=== PATIENT | male | born 1970 | race Caucasian/White ===

== ENCOUNTER 2020-07-03 15:25 | Emergency (ER) | payer OTHER ==
[2020-07-03] MEDS ORDERED: Acetaminophen 500 MG TAB ONE (17:08)
[2020-07-03 17:33] LABS: Hemoglobin 16.8 g/dL (14.0-18.0); Mean Corpuscular HGB CONC 33.6 g/dL (32.0-36.0); Mean Corpuscular Hemoglobin 30.6 pg (27.0-31.0); Mean Corpuscular Volume 90.9 fL (78.0-98.0); Mean Platelet Volume 7.2 fL (7.4-10.4); Platelet Count 149 thou/uL (130-400); RBC Distribution Width 11.8 % (11.5-14.5); Red Blood Cell (RBC) Count 5.49 mill/uL (4.70-6.10)
[2020-07-03 17:55] LABS: ALT (SGPT) 42 U/L (8-55); AST (SGOT) 33 U/L (5-34); Albumin 4.3 g/dL (3.5-5.0); Alkaline Phosphatase 54 U/L (40-110); Anion Gap 14 mmol/L (10-20); BUN (Urea Nitrogen) 12 mg/dL (8.4-25.7); Bilirubin, Total 0.5 mg/dL (0.2-1.2); Calc. Creatinine Clearance 0 mL/min (70-130); Calcium 9.1 mg/dL (7.8-10.44); Carbon Dioxide 26 mmol/L (22-29); Chloride 101 mmol/L (98-107); Estimated GFR-MDRD 75; Globulin 3.1 g/dL (2.4-3.5); Glucose 93 mg/dL (70-105); Protein, Total 7.4 g/dL (6.0-8.3); Sodium 137 mmol/L (136-145)
--- NOTE | 2020-07-03 17:55 | RAD ---
CHEST ONE VIEW: 07/03/20 HISTORY: COVID positive testing with lightheadedness. COMPARISON: Prior chest radiograph dated 11/05/08. FINDINGS: No air space opacity is evident. Heart size is normal. No pleural effusion or pneumothorax is evident . No acute osseous abnormality is evident. IMPRESSION: No acute abnormality. POS: [facility]
[2020-07-03 18:08] LABS: Band 20 % (5-11); Eosinophils 3 % (0-10); Lymphocytes 14 % (21-51); MDiff Complete? YES; Monocytes 22 % (0-10); Neutrophil 24 % (42-75); Platelet Morphology Comment Appears Adequate; RBC Morphology Normal; Reactive Lymphocytes 17 % (0-10)
[2020-07-03] MEDS ORDERED: Aspirin Chewable 81 MG TAB ONE (19:38)
== END 2020-07-03 19:46 | disposition home or self-care (01) ==
LOC: ERS 15:25
DX: U07.1 COVID-19 (principal); D72.9 Disorder of white blood cells, unspecified; E78.5 Hyperlipidemia, unspecified; E78.00 Pure hypercholesterolemia, unspecified; F41.9 Anxiety disorder, unspecified; Z79.899 Other long term (current) drug therapy; Z79.82 Long term (current) use of aspirin
CPT/HCPCS: 36415; 71045; 80053; 84484; 85025; 85379; 93005

== ENCOUNTER 2020-10-03 15:50 | Outpatient (CLI) | payer OTHER | END 2020-10-03 15:51 | disposition home or self-care (01) | LOC: TBSIIMAG 15:50 | PROVIDERS: ATTEND Neurological Surgery | DX: M54.6 Pain in thoracic spine (principal); M47.812 Spondylosis without myelopathy or radiculopathy, cervical region; M47.814 Spondylosis without myelopathy or radiculopathy, thoracic region; Z98.1 Arthrodesis status | CPT/HCPCS: 72040; 72072 ==